=== PATIENT | female | born 1965 | race Caucasian/White ===

== ENCOUNTER 2022-08-27 14:35 | Emergency (ER) | payer MEDICAID ==
[~2022-08-27] VITALS: Ht 152.4 cm; Wt 63.6 kg
[2022-08-27 14:39] VITALS: O2SAT 96
[2022-08-27] MEDS ORDERED: HYDR453.3 TP (18:33)
[2022-08-27 19:12] VITALS: BP 131/85; PULSE 84; RESP 16; TEMP 98.3
== END 2022-08-27 19:14 | disposition home or self-care (01) ==
LOC: ER 14:35
DX: S90.465A Insect bite (nonvenomous), left lesser toe(s), initial encounter (principal); I10 Essential (primary) hypertension; W57.XXXA Bitten or stung by nonvenomous insect and other nonvenomous arthropods, initial encounter; Y93.89 Activity, other specified; Y92.89 Other specified places as the place of occurrence of the external cause; Y99.8 Other external cause status
CPT/HCPCS: 99281; 99282

== ENCOUNTER 2023-09-21 09:24 | Emergency (ER) | payer MEDICAID, OTHER ==
[~2023-09-21] VITALS: Ht 144.8 cm; Wt 65.8 kg
[~2023-09-21 09:24] MED LIST: HYDR453.3 TP
[2023-09-21 09:32] VITALS: O2SAT 97
[2023-09-21] MEDS: IBUPROFEN 600MG TABLET PO STA (11:06)
[2023-09-21] MEDS ORDERED: NIRM1TAB8 PO (12:10)
[2023-09-21 12:19] VITALS: BP 134/54; PULSE 81; RESP 18; TEMP 98.6
== END 2023-09-21 12:36 | disposition home or self-care (01) ==
LOC: ER 09:24
DX: U07.1 COVID-19 (principal); I10 Essential (primary) hypertension; R50.9 Fever, unspecified
CPT/HCPCS: 71045; 87426; 93005; 99285

== ENCOUNTER 2024-09-19 08:06 | Emergency (ER) | payer MEDICAID ==
[~2024-09-19] VITALS: Ht 157.5 cm; Wt 70.0 kg
[~2024-09-19 08:06] MED LIST changes: +NIRM1TAB8 PO
[2024-09-19 08:14] VITALS: O2SAT 97
[2024-09-19] MEDS: KETOROLAC 30MG/ML VIAL IM ONE (08:28)
[2024-09-19] MEDS ORDERED: AMOX1TAB16 MT (08:47)
[2024-09-19] MEDS ORDERED: IBUP-2030 MT (08:47)
[2024-09-19 08:55] VITALS: BP 110/68; PULSE 75; RESP 14; TEMP 37.1; O2SAT 97
== END 2024-09-19 08:56 | disposition home or self-care (01) ==
LOC: ER 08:06
DX: H66.93 Otitis media, unspecified, bilateral (principal); I10 Essential (primary) hypertension; Z55.6 Problems related to health literacy; G89.29 Other chronic pain; M25.511 Pain in right shoulder
CPT/HCPCS: 99283; 96372; J1885